=== PATIENT | female | born 1940 | race Caucasian/White ===

== ENCOUNTER → 2018-07-01 | Outpatient (CLI) | payer MEDICARE, OTHER, MEDICAID ==
[2018-07-01 16:48] LABS: BASO % 0.4 % (0.0-2.0); EOS # 0.2 (0.0-0.7); EOS % 3.8 % (0-4.0); GRAN # 3.6 (1.4-6.5); GRAN % 75.8 % (42.2-75.2); LYMPH # 0.5 (1.2-3.4); LYMPH % 11.3 % (20.0-51.0); MEAN CELL VOLUME 101 fl (80.0-100.0); MEAN CORPUSCULAR HGB CONC 33 g/dl (33.0-37.0); MEAN PLATELET VOLUME 10.2 fl (7.4-10.4); MONO # 0.4 (0.1-0.6); MONO % 7.6 % (1.7-9.3); PLATELET COUNT 274 K/mm3 (130-400); RED BLOOD COUNT 2.13 M/mm3 (4.10-5.30); REDCELL DISTRIBUTION WIDTH-CV 13.5 % (11.5-14.5)
[2018-07-01 16:54] LABS: HEMOGLOBIN 7.1 g/dl (12.5-16.0); MEAN CORPUSCULAR HEMOGLOBIN 33 pg (27.0-31.0)
[2018-07-01 16:55] LABS: HEMATOCRIT 21.4 % (37.0-47.0)
[2018-07-01 16:58] LABS: ALANINE AMINOTRANSFERASE 13 U/L (9-52); ALBUMIN 3.2 gm/dL (3.5-5.0); ALKALINE PHOSPHATASE 60 U/L (50-136); ANION GAP 6 mmol/L (7-16); AST,SGOT 41 U/L (15-37); BILIRUBIN,TOTAL 0.3 mg/dL (0.0-1.0); BLOOD UREA NITROGEN 37 mg/dL (7-17); CALCIUM 8.5 mg/dL (8.4-10.2); CARBON DIOXIDE 23 mmol/L (22-30); CHLORIDE 95 mmol/L (98-107); CREATININE, serum 1.01 (0.52-1.25); GLUCOSE 132 mg/dL (74-106); LIPASE 110 U/L (23-300); POTASSIUM 5.5 mmol/L (3.4-5.0); SODIUM 124 mmol/L (137-145); TOTAL PROTEIN 6.2 gm/dL (6.4-8.2)
[2018-07-01 17:27] LABS: TROPONIN-I < 0.012 ng/mL (0.000-0.035)
== END ==
LOC: ZCOL.LAB 14:52
PROVIDERS: Nurse Practitioner Family
DX: J18.9 Pneumonia, unspecified organism (principal); I50.9 Heart failure, unspecified; K86.1 Other chronic pancreatitis

== ENCOUNTER → 2018-07-02 | Outpatient (CLI) | payer MEDICARE, OTHER, MEDICAID ==
[2018-07-02 15:06] LABS: CALCIUM 8.3 mg/dL (8.4-10.2); CREATININE, serum 1.02 (0.52-1.25); POTASSIUM 5.1 mmol/L (3.4-5.0)
== END ==
LOC: ZCOL.LAB 14:42
PROVIDERS: Internal Medicine
DX: N17.9 Acute kidney failure, unspecified (principal)

== ENCOUNTER 2018-07-04 10:19 | Emergency (ER) | payer MEDICARE, OTHER, MEDICAID ==
[~2018-07-04] VITALS: Ht 160 cm; Wt 59.1 kg
[2018-07-04] VITALS (16 sets, daily range): BP systolic 123–153; BP diastolic 50–78; PULSE 64–75; TEMP 97.2–98
[2018-07-04 10:46] LABS: BASO # 0.1 (0.0-0.2); BASO % 0.9 % (0.0-2.0); EOS # 0.3 (0.0-0.7); GRAN # 3.6 (1.4-6.5); GRAN % 67.8 % (42.2-75.2); LYMPH # 0.9 (1.2-3.4); LYMPH % 17.1 % (20.0-51.0); MEAN CELL VOLUME 99 fl (80.0-100.0); MEAN CORPUSCULAR HGB CONC 34 g/dl (33.0-37.0); MEAN PLATELET VOLUME 8.6 fl (7.4-10.4); MONO # 0.4 (0.1-0.6); MONO % 7.1 % (1.7-9.3); PLATELET COUNT 348 K/mm3 (130-400); RED BLOOD COUNT 2.29 M/mm3 (4.10-5.30); REDCELL DISTRIBUTION WIDTH-CV 13.2 % (11.5-14.5)
[2018-07-04 10:49] LABS: HEMATOCRIT 22.7 % (37.0-47.0); HEMOGLOBIN 7.6 g/dl (12.5-16.0); MEAN CORPUSCULAR HEMOGLOBIN 33 pg (27.0-31.0)
[2018-07-04 10:54] LABS: INR 1.1 (0.8-3.0); PROTHROMBIN TIME 12.8 SECONDS (9.7-12.8)
[2018-07-04 10:55] LABS: ALANINE AMINOTRANSFERASE 8 U/L (9-52); ALBUMIN 3.4 gm/dL (3.5-5.0); ALKALINE PHOSPHATASE 57 U/L (50-136); ANION GAP 8 mmol/L (7-16); AST,SGOT 24 U/L (15-37); BILIRUBIN,TOTAL 0.3 mg/dL (0.0-1.0); BLOOD UREA NITROGEN 35 mg/dL (7-17); CALCIUM 8.8 mg/dL (8.4-10.2); CARBON DIOXIDE 25 mmol/L (22-30); CHLORIDE 93 mmol/L (98-107); CREATININE, serum 1.19 (0.52-1.25); GLUCOSE 103 mg/dL (74-106); LIPASE 132 U/L (23-300); POTASSIUM 5.2 mmol/L (3.4-5.0); SODIUM 126 mmol/L (137-145); TOTAL PROTEIN 6.6 gm/dL (6.4-8.2)
[2018-07-04] MEDS ORDERED: ATIVAN 0.50.5 MG/TAB PO (11:00)
[2018-07-04] MEDS ORDERED: ASPIRIN 81M81 MG/TA2 PO (11:00)
[2018-07-04] MEDS ORDERED: TYLENOL SU650 MG/SUP RC (11:00)
[2018-07-04] MEDS ORDERED: COREG 25MG25 MG/TAB PO (11:07)
[2018-07-04 11:08] LABS: TROPONIN-I < 0.012 ng/mL (0.000-0.035)
[2018-07-04] MEDS ORDERED: CATAPRES 0.1MG0.1 MG PO (11:08)
[2018-07-04] MEDS ORDERED: DULCOLAX STOOL100 MG PO (11:08)
[2018-07-04] MEDS ORDERED: EUCERIN1 CRE TOP (11:09)
[2018-07-04] MEDS ORDERED: MUCINEX 60600 MG/TA1 PO (11:09)
[2018-07-04] MEDS ORDERED: HYDRALAZINE HC100 MG PO (11:10)
[2018-07-04] MEDS ORDERED: IMODIUM 2MG CAPS2 MG PO (11:11)
[2018-07-04] MEDS ORDERED: GOOD SENSE ANTI-IT1% TP (11:11)
[2018-07-04] MEDS ORDERED: LASIX 40MG TABL40 MG PO (11:12)
[2018-07-04] MEDS ORDERED: SYNTHROID0.075 MG/T PO (11:12)
[2018-07-04] MEDS ORDERED: MIRALAX PA17 GM/Dose PO (11:13)
[2018-07-04] MEDS ORDERED: COZAAR100 MG PO (11:13)
[2018-07-04] MEDS ORDERED: MILK OF MA400 MG/52 (11:13)
[2018-07-04] MEDS ORDERED: MYLANTA 150 ML150 M1 (11:33)
[2018-07-04] MEDS ORDERED: ZOLOFT 100MG100 MG PO (11:34)
[2018-07-04] MEDS ORDERED: PROAIR HFA0.09 MG/AC IH (11:34)
[2018-07-04] MEDS ORDERED: PROTONIX 40MG T40 MG PO (11:34)
[2018-07-04] MEDS ORDERED: ADALAT CC90 MG PO (11:34)
[2018-07-04] MEDS ORDERED: ZOFRAN 4MG T4 MG/TAB PO (11:35)
[2018-07-04] MEDS ORDERED: TYLENOL 325MG325 MG PO (11:35)
[2018-07-04 12:45] LABS: COLLECTION METHOD CLEAN CATCH
[2018-07-04 12:58] LABS: AMORPHOUS CRYSTAL Present /uL; HYALINE CAST >12 /lpf; MUCOUS Present /lpf; PH 5 (5-8); SQUAMOUS EPITHELIAL 0-2 /hpf; URINE APPEARANCE Clear; URINE BACTERIA Many /hpf; URINE BILIRUBIN Negative (NEGATIVE); URINE BLOOD 1+ (NEGATIVE); URINE COLOR Yellow; URINE GLUCOSE Negative (NEGATIVE); URINE KETONE Negative (NEGATIVE); URINE LEUKOCYTE ESTERASE Trace (NEGATIVE); URINE NITRATE Negative (NEGATIVE); URINE PROTEIN(semi-quant) 1+ (NEGATIVE); URINE UROBILINOGEN Negative (NEGATIVE)
[2018-07-04] MEDS ORDERED: MACROBID 1100 MG/CAP PO (13:29)
== END 2018-07-04 16:49 | disposition home or self-care (01) ==
LOC: COL.ER 10:19
PROVIDERS: Emergency Medicine
DX: N39.0 Urinary tract infection, site not specified (principal); D64.9 Anemia, unspecified; J44.9 Chronic obstructive pulmonary disease, unspecified; Z79.82 Long term (current) use of aspirin
CPT/HCPCS: C9113; J1940; J2405; J7030; P9016

== ENCOUNTER → 2018-07-04 | Outpatient (CLI) | payer MEDICARE, OTHER, MEDICAID ==
[~2018-07-04] MED LIST: ADALAT CC90 MG PO; ASPIRIN 81M81 MG/TA2 PO; ATIVAN 0.50.5 MG/TAB PO; CATAPRES 0.1MG0.1 MG PO; COREG 25MG25 MG/TAB PO; COZAAR100 MG PO; DULCOLAX S10 MG/SUPP RC; DULCOLAX STOOL100 MG PO; EUCERIN1 CRE TOP; GOOD SENSE ANTI-IT1% TP; HYDRALAZINE HC100 MG PO; IMODIUM 2MG CAPS2 MG PO; LASIX 40MG TABL40 MG PO; MACROBID 1100 MG/CAP PO; MILK OF MA400 MG/52; MIRALAX PA17 GM/Dose PO; MUCINEX 60600 MG/TA1 PO; MYLANTA 150 ML150 M1; PROAIR HFA0.09 MG/AC IH; PROTONIX 40MG T40 MG PO; SYNTHROID0.075 MG/T PO; TYLENOL 325MG325 MG PO; TYLENOL SU650 MG/SUP RC; ZOFRAN 4MG T4 MG/TAB PO; ZOLOFT 100MG100 MG PO
[2018-07-04 09:06] LABS: BASO % 0.6 % (0.0-2.0); EOS # 0.3 (0.0-0.7); EOS % 5.1 % (0-4.0); GRAN # 3.4 (1.4-6.5); GRAN % 69.7 % (42.2-75.2); LYMPH # 0.7 (1.2-3.4); LYMPH % 14.6 % (20.0-51.0); MEAN CELL VOLUME 100 fl (80.0-100.0); MEAN CORPUSCULAR HGB CONC 33 g/dl (33.0-37.0); MEAN PLATELET VOLUME 8.7 fl (7.4-10.4); MONO # 0.5 (0.1-0.6); MONO % 9.2 % (1.7-9.3); PLATELET COUNT 305 K/mm3 (130-400); RED BLOOD COUNT 1.83 M/mm3 (4.10-5.30); REDCELL DISTRIBUTION WIDTH-CV 13.3 % (11.5-14.5)
[2018-07-04 09:09] LABS: CALCIUM 8.2 mg/dL (8.4-10.2); CREATININE, serum 1.11 (0.52-1.25); POTASSIUM 5.2 mmol/L (3.4-5.0)
[2018-07-04 09:11] LABS: HEMATOCRIT 18.3 % (37.0-47.0); MEAN CORPUSCULAR HEMOGLOBIN 33 pg (27.0-31.0)
[2018-07-04 09:20] LABS: HEMOGLOBIN 6.1 g/dl (12.5-16.0)
== END ==
LOC: COL.LAB 08:46 → ZCOL.LAB 08:46
PROVIDERS: Internal Medicine
DX: J44.9 Chronic obstructive pulmonary disease, unspecified (principal); N17.9 Acute kidney failure, unspecified

== ENCOUNTER → 2018-07-05 | Outpatient (CLI) | payer MEDICARE, OTHER, MEDICAID ==
[2018-07-05 09:28] LABS: BASO % 0.4 % (0.0-2.0); EOS # 0.3 (0.0-0.7); EOS % 4.3 % (0-4.0); GRAN # 5.4 (1.4-6.5); GRAN % 77.8 % (42.2-75.2); LYMPH # 0.8 (1.2-3.4); LYMPH % 11.9 % (20.0-51.0); MEAN CELL VOLUME 98 fl (80.0-100.0); MEAN CORPUSCULAR HGB CONC 34 g/dl (33.0-37.0); MONO # 0.3 (0.1-0.6); MONO % 4.6 % (1.7-9.3); PLATELET COUNT 310 K/mm3 (130-400); RED BLOOD COUNT 2.19 M/mm3 (4.10-5.30); REDCELL DISTRIBUTION WIDTH-CV 13.8 % (11.5-14.5)
[2018-07-05 09:32] LABS: HEMATOCRIT 21.5 % (37.0-47.0); HEMOGLOBIN 7.2 g/dl (12.5-16.0); MEAN CORPUSCULAR HEMOGLOBIN 33 pg (27.0-31.0)
[2018-07-05 13:58] LABS: CALCIUM 8.8 mg/dL (8.4-10.2); CREATININE, serum 1.04 (0.52-1.25); POTASSIUM 4.9 mmol/L (3.4-5.0)
== END ==
LOC: COL.LAB 09:18 → ZCOL.LAB 09:18
PROVIDERS: Internal Medicine
DX: N17.9 Acute kidney failure, unspecified (principal); J44.9 Chronic obstructive pulmonary disease, unspecified

== ENCOUNTER 2018-07-06 14:15 | Day surgery (SDC) | payer MEDICARE, OTHER, MEDICAID ==
[~2018-07-06] VITALS: Ht 160 cm; Wt 58.7 kg
[~2018-07-06 14:15] MED LIST changes: -DULCOLAX S10 MG/SUPP RC
[2018-07-06 15:06] VITALS: BP 129/55; PULSE 63; TEMP 97.6
[2018-07-06] MEDS ORDERED: DULCOLAX S10 MG/SUPP RC (15:10)
--- NOTE | 2018-07-06 15:22 | NUR ---
UNABLE TO START IV AFTER 2 ATTEMPTS IV SERVICES CALLED.
[2018-07-06 16:40] VITALS: BP 115/58; PULSE 67; TEMP 97.5
--- NOTE | 2018-07-06 16:40 | NUR ---
TO BAY4 PER CART FROM ENDOSCOPY. AMBULATED TO RECLINER WITH 2 ASSIST AND TOLERATED WELL.
[2018-07-06 16:55] VITALS: BP 119/55; PULSE 68
[2018-07-06 17:10] VITALS: BP 119/55; PULSE 68
--- NOTE | 2018-07-06 17:10 | NUR ---
SON BACK IN RM TO SIT WITH PATIENT
[2018-07-06 17:25] VITALS: BP 133/67; PULSE 65
--- NOTE | 2018-07-06 17:25 | NUR ---
DISCONTINUED IV AND INT- CATHETER INTACT COVERED WITH COTTON BALL AND COBAN
--- NOTE | 2018-07-06 17:35 | NUR ---
ASSISTED PATIENT WITH [facility] AND GETTING DRESSED AND BACK TO FROM [facility]
--- NOTE | 2018-07-06 17:45 | NUR ---
DISCHARGED PER WC BY NURSING STAFF TO PRIVATE CAR IN CARE OF SON TO BE TAKEN BACK TO [facility]
== END 2018-07-06 18:24 | disposition home or self-care (01) ==
LOC: SDCO 14:15
DX: D50.0 Iron deficiency anemia secondary to blood loss (chronic) (principal); K55.9 Vascular disorder of intestine, unspecified; K92.1 Melena; K21.9 Gastro-esophageal reflux disease without esophagitis; I50.9 Heart failure, unspecified; D63.8 Anemia in other chronic diseases classified elsewhere; I13.0 Hypertensive heart and chronic kidney disease with heart failure and stage 1 through stage 4 chronic kidney disease, or unspecified chronic kidney disease; N18.9 Chronic kidney disease, unspecified; Z79.899 Other long term (current) drug therapy; Z87.891 Personal history of nicotine dependence; F41.9 Anxiety disorder, unspecified
CPT/HCPCS: OP; J2704; J7030

== ENCOUNTER → 2018-07-06 | Outpatient (CLI) | payer MEDICARE, OTHER, MEDICAID ==
[2018-07-06 13:07] LABS: BASO % 0.6 % (0.0-2.0); EOS # 0.2 (0.0-0.7); EOS % 3.7 % (0-4.0); GRAN # 4.1 (1.4-6.5); GRAN % 75.5 % (42.2-75.2); LYMPH # 0.7 (1.2-3.4); LYMPH % 12.6 % (20.0-51.0); MEAN CELL VOLUME 100 fl (80.0-100.0); MEAN CORPUSCULAR HGB CONC 33 g/dl (33.0-37.0); MEAN PLATELET VOLUME 8.8 fl (7.4-10.4); MONO # 0.4 (0.1-0.6); MONO % 6.7 % (1.7-9.3); PLATELET COUNT 322 K/mm3 (130-400); RED BLOOD COUNT 2.34 M/mm3 (4.10-5.30); REDCELL DISTRIBUTION WIDTH-CV 13.6 % (11.5-14.5)
[2018-07-06 13:15] LABS: CALCIUM 8.7 mg/dL (8.4-10.2); CREATININE, serum 1.46 (0.52-1.25); HEMATOCRIT 23.3 % (37.0-47.0); HEMOGLOBIN 7.7 g/dl (12.5-16.0); MEAN CORPUSCULAR HEMOGLOBIN 33 pg (27.0-31.0); POTASSIUM 4.2 mmol/L (3.4-5.0)
== END ==
LOC: ZCOL.LAB 11:20
PROVIDERS: Internal Medicine
DX: Z01.89 Encounter for other specified special examinations (principal)

== ENCOUNTER → 2018-07-18 | Outpatient (CLI) | payer MEDICARE, OTHER, MEDICAID ==
[~2018-07-18] MED LIST changes: +DULCOLAX S10 MG/SUPP RC
[2018-07-18 19:52] LABS: BASO # 0.1 (0.0-0.2); BASO % 0.7 % (0.0-2.0); EOS # 0.1 (0.0-0.7); EOS % 1.6 % (0-4.0); GRAN # 5.3 (1.4-6.5); GRAN % 76.9 % (42.2-75.2); LYMPH # 0.9 (1.2-3.4); LYMPH % 12.3 % (20.0-51.0); MEAN CELL VOLUME 101 fl (80.0-100.0); MEAN CORPUSCULAR HGB CONC 32 g/dl (33.0-37.0); MEAN PLATELET VOLUME 9.7 fl (7.4-10.4); MONO # 0.6 (0.1-0.6); MONO % 7.9 % (1.7-9.3); PLATELET COUNT 315 K/mm3 (130-400); REDCELL DISTRIBUTION WIDTH-CV 13.1 % (11.5-14.5)
[2018-07-18 19:53] LABS: HEMATOCRIT 25.2 % (37.0-47.0); HEMOGLOBIN 8.1 g/dl (12.5-16.0); MEAN CORPUSCULAR HEMOGLOBIN 32 pg (27.0-31.0)
== END ==
LOC: ZCOL.LAB 16:31
PROVIDERS: Nurse Practitioner Family
DX: N18.9 Chronic kidney disease, unspecified (principal); D63.1 Anemia in chronic kidney disease

== ENCOUNTER → 2019-01-05 | Outpatient (CLI) | payer MEDICARE, OTHER, MEDICAID | LOC: COL.RAD 01-04 11:15 | DX: I70.1 Atherosclerosis of renal artery (principal); N20.0 Calculus of kidney ==

== ENCOUNTER 2019-01-08 09:09 | Inpatient (IN) | payer MEDICARE, OTHER, MEDICAID ==
[~2019-01-08] VITALS: Ht 157.5 cm; Wt 63.8 kg
--- NOTE | 2019-01-08 12:00 | NUR ---
Pt arrived to room 354 at this time. She is a pleasant lady, A/O x4. Her breathing is even and unlabored on RA. Pt denies SOB. No pain at this time. Pt reports decrease in appetite, denies wanting to eat at this time. Diet discussed with patient. +BS. Pt up to urinate in the bathroom, hematuria present. She denies any dysuria or frequency. IV started to RFA. POC discussed with patient and her daughter. No needs at this time. Call light within reach.
[2019-01-08 12:51] VITALS: BP 157/68; PULSE 72; TEMP 97.7
[2019-01-08 13:10] LABS: HEMOGLOBIN 11.2 g/dl (12.5-16.0); MEAN CELL VOLUME 95 fl (80.0-100.0); MEAN CORPUSCULAR HEMOGLOBIN 31 pg (27.0-31.0); MEAN CORPUSCULAR HGB CONC 32 g/dl (33.0-37.0); MEAN PLATELET VOLUME 9.2 fl (7.4-10.4); PLATELET COUNT 220 K/mm3 (130-400); RED BLOOD COUNT 3.66 M/mm3 (4.10-5.30); REDCELL DISTRIBUTION WIDTH-CV 16.1 % (11.5-14.5)
[2019-01-08 13:21] LABS: HEMATOCRIT 34.9 % (37.0-47.0)
[2019-01-08 13:23] LABS: ALBUMIN 3.7 gm/dL (3.5-5.0); CALCIUM 8.8 mg/dL (8.4-10.2); POTASSIUM 4.6 mmol/L (3.4-5.0); URIC ACID 6.3 mg/dL (2.5-6.2)
[2019-01-08 13:25] LABS: CREATININE, serum 3.94 (0.52-1.25)
[2019-01-08 13:32] LABS: PROTHROMBIN TIME 11.8 SECONDS (9.7-12.8)
[2019-01-08 13:54] LABS: PLATELET ESTIMATE NORMAL (NORMAL)
[2019-01-08 13:55] LABS: ANISOCYTOSIS 1+
[2019-01-08 14:05] LABS: BAND 6 % (0-10); EOSINOPHIL 3 % (0-4); LYMPHOCYTE 17 % (20.0-51.0); NEUTROPHILS 71 % (42.0-75.2)
[2019-01-08 14:36] LABS: COLLECTION METHOD CLEAN CATCH
[2019-01-08 15:04] LABS: CREATININE, serum 3.86 (0.52-1.25); FRACTIONAL EXCRETION OF NA+ 0.9 %
[2019-01-08 15:29] LABS: PH 6 (5-8); SQUAMOUS EPITHELIAL 0-2 /hpf; URINE APPEARANCE Hazy; URINE BACTERIA Occasional /hpf; URINE BILIRUBIN Negative (NEGATIVE); URINE BLOOD 3+ (NEGATIVE); URINE COLOR Yellow; URINE GLUCOSE Negative (NEGATIVE); URINE KETONE Negative (NEGATIVE); URINE LEUKOCYTE ESTERASE Negative (NEGATIVE); URINE NITRATE Negative (NEGATIVE); URINE PROTEIN(semi-quant) 3+ (NEGATIVE); URINE RBC >50 /hpf; URINE UROBILINOGEN Negative (NEGATIVE)
[2019-01-08 15:44] VITALS: BP 151/60; PULSE 68; TEMP 97.9
[2019-01-08 16:07] LABS: URINE PROTEIN:CREAT RATIO 9.08 (0.00-0.14)
--- NOTE | 2019-01-08 19:15 | NUR ---
Bedside report received. Assuming care at this time.
--- NOTE | 2019-01-08 19:45 | NUR ---
24 hr urine collection started at this time.
--- NOTE | 2019-01-08 20:00 | NUR ---
Patient awake and watching tv. Complaints of back pain rated 5/10 and aching. Assessment complete. Lungs are clear bilaterally with diminished bases. HR and rhythm are regular with normal S1 and S2 heard. Bowel sounds active x4. Pulses palpable in all extremities. Patient requests for her heating llanos bag to be warmed up, provided. No further needs at this time. Will continue to monitor. Call light within reach.
[2019-01-08 20:20] VITALS: BP 180/76; PULSE 70; TEMP 97.8
[2019-01-09] VITALS (7 sets, daily range): BP systolic 141–184; BP diastolic 50–76; PULSE 72–79; TEMP 97.4–98.5
--- NOTE | 2019-01-09 07:30 | NUR ---
Received report. Patient had just been up to restroom with staff assist. Off going nurse reported that patient preferred to be left alone as she stated she was a late sleeper. Patient is resting with door closed.
--- NOTE | 2019-01-09 14:43 | NUR ---
Plan: To return to [facility] at [facility]. Sw met with patient in room. Patient reports that she resides at [facility] and her pcp is Dr. Polo. Patient reports that [facility] obtains RX on her behalf. Pt reports that her DTR Ms. Lawton and Son Anita Li are both in contact with her on her care but does not have DPOA assigned that she knows of. Patient reports the use of walker and wheelchair. Patient denies anyu care concerns. Patient denies having any additonal needs. Action. Will continue to follow care No additonal needs identifed.
--- NOTE | 2019-01-09 18:03 | NUR ---
Patient is resting flat in bed. Did offer assistance in ordering supper and she declined stating she ordered an Ensure shake and stated she didn't want any food. I did inform patient if she should change her mind there is some food available in the nutruition room, she stated, "ok." Spoke with Dr. Hunter regarding renal scan and he would like it to be completed tomorrow. Did inform radiology and they report they would like to begin the test at 0800 tomorrow and patient is not to have any solid food prior to procedure.
--- NOTE | 2019-01-09 19:45 | NUR ---
Initial assessment done- states having aches all over- will give tylenol at this time, no edema, 24 hr urine completed, family at bedside visiting with patient. VSS. o2 at 2L/nc.
[2019-01-09 22:13] LABS: URINE TOTAL VOLUME 1750 mL
[2019-01-09 22:25] LABS: CREATININE, serum 3.94 (0.52-1.25)
[2019-01-09 22:30] LABS: URINE CREATININE CLEARANCE 13.5 mL/min (88-128)
[2019-01-10 03:48] VITALS: BP 138/52; PULSE 68; TEMP 98.7
--- NOTE | 2019-01-10 05:47 | NUR ---
Quiet night- no requests, VSS Up to bathroom with standy assist/walker,
[2019-01-10 07:40] VITALS: BP 154/57; PULSE 76; TEMP 98.4
--- NOTE | 2019-01-10 11:11 | NUR ---
Patient went down for renal scan at 0830 this morning. Returned at 1035. Dr. Hunter is in to see patient. Daughter is at bedside. Call light and personal items are within reach.
[2019-01-10 11:26] LABS: ALBUMIN 3.4 gm/dL (3.5-5.0); CALCIUM 8.7 mg/dL (8.4-10.2); PHOSPHOROUS 7.7 mg/dL (2.5-4.5)
[2019-01-10 11:32] LABS: CREATININE, serum 4.35 (0.52-1.25)
[2019-01-10 12:13] VITALS: BP 160/64; PULSE 72; TEMP 98.6
--- NOTE | 2019-01-10 15:10 | NUR ---
Plan: To Return home to [facility]. Patient EMR's are [phone] and [phone]. DPOA is Anaid and patients son Kuldeep Lawton. Patient resides in [facility]. Assess: SW met with patient and daughters were present. Patient gave permission to discuss information in front of daughters. Patient reported that she has used oxygen in the past, she was currently recieving oxygen, and she uses a walker at home. Patient reported that her PCP is Dr Hendricks, and she did not have any upcoming appointments. Patient reported that she gets her medications from the care home with no complications. Plan: No additional concerns identified. Patient was educated about community resources and supports. Faxed reports to anabell at [facility](Juliane fax # [phone])
[2019-01-10 15:47] VITALS: BP 125/52; PULSE 68; TEMP 98.4
--- NOTE | 2019-01-10 18:14 | NUR ---
Patient has been up to the restroom and back to bed. Has had daughter to visit most of the day. Did eat solid food this evening. Denies pain, just states she has been cold. Call light and personal items are within reach.
[2019-01-10 19:32] VITALS: BP 122/45; PULSE 72; TEMP 99
[2019-01-10 23:08] VITALS: BP 124/50; PULSE 70; TEMP 98.9
[2019-01-11 04:06] VITALS: BP 127/46; PULSE 62; TEMP 98.5
[2019-01-11 07:09] VITALS: BP 140/52; PULSE 64; TEMP 98
--- NOTE | 2019-01-11 07:59 | NUR ---
Patient is in bed, ultrasound is present for vein mapping. Has remained NPO for renal biopsy today. Respirations are even and nonlabored. Call light and personal items are within reach.
[2019-01-11 08:00] LABS: MEAN CELL VOLUME 95 fl (80.0-100.0); MEAN CORPUSCULAR HGB CONC 32 g/dl (33.0-37.0); PLATELET COUNT 174 K/mm3 (130-400); RED BLOOD COUNT 3.13 M/mm3 (4.10-5.30); REDCELL DISTRIBUTION WIDTH-CV 16.1 % (11.5-14.5)
[2019-01-11 08:07] LABS: INR 1.1 (0.8-3.0); PROTHROMBIN TIME 12.6 SECONDS (9.7-12.8)
[2019-01-11 08:10] LABS: CALCIUM 8.1 mg/dL (8.4-10.2); CREATININE, serum 4.58 (0.52-1.25); PHOSPHOROUS 8.1 mg/dL (2.5-4.5); POTASSIUM 3.7 mmol/L (3.4-5.0)
[2019-01-11 08:12] LABS: HEMATOCRIT 29.7 % (37.0-47.0); HEMOGLOBIN 9.4 g/dl (12.5-16.0); MEAN CORPUSCULAR HEMOGLOBIN 30 pg (27.0-31.0)
--- NOTE | 2019-01-11 08:40 | NUR ---
Pt had an uneventful night. O2 on per NC at 2.5L. Woke up this morning with dry throat. States she feels like her throat is swollen. Explained to her that we can put a humidifier on her O2 and that was done. HOB elevated 35-40. No other c/o. Call light in reach. Refuses her SCD's this shift.
--- NOTE | 2019-01-11 09:00 | NUR ---
Patient is in bed, having sonogram of arm for vein mapping. Is unable to have renal biopsy today, has been scheduled for tomorrow. Is observed to have some swelling to her right cheek. Nurse for Dr. Hunter is aware. Call light and personal items are within reach.
[2019-01-11 10:00] LABS: BAND 5 % (0-10); EOSINOPHIL 7 % (0-4); LYMPHOCYTE 14 % (20.0-51.0); NEUTROPHILS 68 % (42.0-75.2); PLATELET ESTIMATE NORMAL (NORMAL)
[2019-01-11 11:42] VITALS: BP 127/46; PULSE 65; TEMP 98
--- NOTE | 2019-01-11 12:36 | NUR ---
Initial visit; Patient thanked Podiatric Surgeon for looking in on her and offering prayer and God's blessings. Podiatric Surgeon will follow-up.
--- NOTE | 2019-01-11 13:27 | NUR ---
ARTI contacted and faxed updates to Crystal at [facility]. SW to continue to follow.
[2019-01-11 14:43] LABS: ANA SCREEN with REFLEX Negative (Negative)
--- NOTE | 2019-01-11 15:54 | NUR ---
The patient completed a Living Will. The patient's son requested a notary. SW notified the notaryCaterina. The document was notarized. ARTI placed a copy of the Living Will in the patient's chart.
[2019-01-11 17:05] VITALS: BP 144/54; PULSE 76; TEMP 98.8
--- NOTE | 2019-01-11 19:10 | NUR ---
Patient was reported to have oral antibiotic ordered and was mentioned and progress note. Called Dr. Hunter and confirmed order, was placed for pharmacy review. Call light and personal items are within reach.
[2019-01-11 19:20] VITALS: BP 155/59; PULSE 73; TEMP 98
[2019-01-11 23:37] VITALS: BP 141/53; PULSE 71; TEMP 97.9
[2019-01-12] VITALS (20 sets, daily range): BP systolic 121–160; BP diastolic 50–76; PULSE 58–70; TEMP 97.9–98
--- NOTE | 2019-01-12 02:17 | NUR ---
Pt requested Tylenol 650mg at HS. Face still appears a little edematous. O2 on at HS at 2L/nc. C/o lips being very dry. Moisture applied to lips. Pt made NPO at midnight. Quiet evening.
--- NOTE | 2019-01-12 03:45 | NUR ---
Pt up to BR with SBA. Steady gait. Denies any needs. Back to bed. Positioned on left side. Call light within reach.
[2019-01-12 07:17] LABS: ALBUMIN 3.1 gm/dL (3.5-5.0); CALCIUM 8.2 mg/dL (8.4-10.2); PHOSPHOROUS 8.6 mg/dL (2.5-4.5); POTASSIUM 3.4 mmol/L (3.4-5.0)
[2019-01-12 07:18] LABS: CREATININE, serum 4.71 (0.52-1.25)
--- NOTE | 2019-01-12 08:00 | NUR ---
Patient in bed resting. Alert and oriented x 3. Shift assessment complete. Patient denies pain at this time. x1 assist to restroom with walker. Denies further needs at this time. Patient NPO for kidney biopsy this AM.
--- NOTE | 2019-01-12 09:00 | NUR ---
Patient down for kidney biopsy
--- NOTE | 2019-01-12 09:05 | NUR ---
pt to room per bed. Pt positioned in prone position on ct table. Monitors applied. O2 continues at 2l/nc.
--- NOTE | 2019-01-12 09:35 | NUR ---
Specimens obtained and transported to Dr Guevara to view via microscope. Additional specimens obtained and Dr Guevara stated he had enough glomeruli
--- NOTE | 2019-01-12 10:00 | NUR ---
Patient up from biopsy. Drowsy but arouses easily to voice. Educated patient on bedrest after procedure. Postop VSS. Denies further needs at this time.
[2019-01-12 10:59] LABS: EOS # 0.2 (0.0-0.7); EOS % 4.5 % (0-4.0); GRAN # 2.7 (1.4-6.5); GRAN % 65.5 % (42.2-75.2); LYMPH # 0.8 (1.2-3.4); LYMPH % 19.6 % (20.0-51.0); MEAN CELL VOLUME 96 fl (80.0-100.0); MEAN CORPUSCULAR HGB CONC 32 g/dl (33.0-37.0); MEAN PLATELET VOLUME 10.4 fl (7.4-10.4); MONO # 0.4 (0.1-0.6); MONO % 8.9 % (1.7-9.3); PLATELET COUNT 205 K/mm3 (130-400); RETIC # 0.09 M/mm3 (0.02-0.16); RETIC % 2.8 % (0.5-3.52)
[2019-01-12 11:06] LABS: HEMATOCRIT 29.6 % (37.0-47.0); HEMOGLOBIN 9.5 g/dl (12.5-16.0); MEAN CORPUSCULAR HEMOGLOBIN 31 pg (27.0-31.0)
--- NOTE | 2019-01-12 12:46 | NUR ---
Dr. Teixeira in to see patient.
[2019-01-12 13:42] LABS: ARTERIAL BLD GAS O2 SATURATION 91.8 % (92-100); ARTERIAL BLD GAS TCO2 CT 22.2; ARTERIAL BLOOD GAS BASE EXCESS -4.1 (-2-2); ARTERIAL BLOOD GAS PCO2 38.3 mmHg (35-45); ARTERIAL BLOOD GAS pH 7.36 (7.35-7.45)
--- NOTE | 2019-01-12 15:27 | NUR ---
ARTI contacted and faxed updates to Crystal at [facility]. ARTI requested from RN, Nithya, for PT/OT to be ordered. ARTI to continue to follow.
--- NOTE | 2019-01-12 16:52 | NUR ---
Patient sitting up in bed. Ordered supper, Denies further needs at this time.
--- NOTE | 2019-01-12 18:37 | NUR ---
Patient has done well throughout the day. Biopsy site with bandaid remains CDI. Has requested tylenol for neck pain. Given per orders. Denies further needs at this time. Will report off to night time nanny.
--- NOTE | 2019-01-12 21:00 | NUR ---
Shift assessment complete. Patient c/o right hip pain. Will give tylenol when due. Patient agreeable to plan. Denies further needs at this time. Will continue to monitor.
[2019-01-13] VITALS (8 sets, daily range): BP systolic 121–141; BP diastolic 40–56; PULSE 59–71; TEMP 97.2–98.3
--- NOTE | 2019-01-13 04:16 | NUR ---
Patient in bed, resting. Denies pain. Denies further needs at this time. Will continue to monitor.
[2019-01-13 06:57] LABS: BASO % 0.7 % (0.0-2.0); EOS # 0.2 (0.0-0.7); EOS % 5.6 % (0-4.0); GRAN # 2.6 (1.4-6.5); GRAN % 64.1 % (42.2-75.2); LYMPH # 0.8 (1.2-3.4); LYMPH % 18.9 % (20.0-51.0); MEAN CELL VOLUME 94 fl (80.0-100.0); MEAN CORPUSCULAR HGB CONC 32 g/dl (33.0-37.0); MEAN PLATELET VOLUME 9.4 fl (7.4-10.4); MONO # 0.4 (0.1-0.6); MONO % 10.2 % (1.7-9.3); PLATELET COUNT 201 K/mm3 (130-400); RED BLOOD COUNT 2.85 M/mm3 (4.10-5.30); REDCELL DISTRIBUTION WIDTH-CV 15.5 % (11.5-14.5)
[2019-01-13 07:09] LABS: HEMATOCRIT 26.8 % (37.0-47.0); HEMOGLOBIN 8.6 g/dl (12.5-16.0); MEAN CORPUSCULAR HEMOGLOBIN 30 pg (27.0-31.0)
[2019-01-13 07:10] LABS: ALBUMIN 2.9 gm/dL (3.5-5.0); CALCIUM 7.8 mg/dL (8.4-10.2); POTASSIUM 3.7 mmol/L (3.4-5.0)
[2019-01-13 07:15] LABS: CREATININE, serum 5.09 (0.52-1.25); PHOSPHOROUS 9.8 mg/dL (2.5-4.5)
--- NOTE | 2019-01-13 08:40 | NUR ---
Assessment complete. Pt resting in bed, A&O x 3. Breath sounds CTAB. BS active x 4. Pt reports aching to right hip/flank 4 out of 10 on pain scale. Bandaid in place to right hip, CDI. Saline lock IV to right forearm without s/s of complications. No further needs reported. Call light in reach.
--- NOTE | 2019-01-13 11:00 | NUR ---
Assessment entered by student nurse reviewed and agreed by this nurse.
--- NOTE | 2019-01-13 14:01 | NUR ---
ARTI contacted and faxed updates to Crystal at [facility]. SW to continue to follow.
--- NOTE | 2019-01-13 16:10 | NUR ---
Pt to CT for testing via WC.
--- NOTE | 2019-01-13 20:00 | NUR ---
Shift assessment complete. Patient ambulated to BR with walker and assist x1. Stated, mild pain in right hip. Prn tylenol given per request. Urine noted to be slightly red-tinged. Will notify Dr. Hunter in a.m. Denies further needs at this time. Will continue to monitor.
[2019-01-14] VITALS (24 sets, daily range): BP systolic 145–178; BP diastolic 58–83; PULSE 65–71; TEMP 97.4–97.9; O2SAT 35–100
--- NOTE | 2019-01-14 08:00 | NUR ---
Patient is awake and alert in bed. She signed consent for dialysis catheter. She was up to restroom, gait steady. Does state that her throat is a little sore. Call ligth and personal items are within reach.
--- NOTE | 2019-01-14 11:00 | NUR ---
Patient left floor for dialysis catheter placement.
--- NOTE | 2019-01-14 12:15 | NUR ---
ALL MEDICATIONS GIVEN WITH VORB FROM MD. SEE MERGE FOR ALL MEDICATION ADMIN TIMES. SEE MERGE FOR ALL RASS ASSESSMENTS DURING AND POST PROCEDURE.
--- NOTE | 2019-01-14 13:47 | NUR ---
Emiliana ShresthaProduce Buyer attempts to contact Dr. Hunter.
--- NOTE | 2019-01-14 13:48 | NUR ---
Emiliana calls Nely nephrology RN and leaves message in attempt to contact Dr Hunter.
[2019-01-14 13:59] LABS: HEMOGLOBIN 10.2 g/dl (12.5-16.0); MEAN CELL VOLUME 94 fl (80.0-100.0); MEAN CORPUSCULAR HEMOGLOBIN 31 pg (27.0-31.0); MEAN CORPUSCULAR HGB CONC 32 g/dl (33.0-37.0); MEAN PLATELET VOLUME 9.3 fl (7.4-10.4); PLATELET COUNT 191 K/mm3 (130-400); RED BLOOD COUNT 3.34 M/mm3 (4.10-5.30); REDCELL DISTRIBUTION WIDTH-CV 15.5 % (11.5-14.5)
[2019-01-14 13:59] LABS: ARTERIAL BLD GAS O2 SATURATION 99.6 % (92-100); ARTERIAL BLD GAS TCO2 CT 13.7; ARTERIAL BLOOD GAS BASE EXCESS -12.8 (-2-2); ARTERIAL BLOOD GAS HCO3 12.8 meq/L (22-26); ARTERIAL BLOOD GAS PCO2 28.7 mmHg (35-45); ARTERIAL BLOOD GAS pH 7.27 (7.35-7.45)
[2019-01-14 14:11] LABS: HEMATOCRIT 31.5 % (37.0-47.0)
--- NOTE | 2019-01-14 14:23 | NUR ---
Patient arrives to ICU 5 via bed and is placed on ICU monitors. She is alert and oriented to person and place and situation. Patient expresses pain to he chest and back. She is post code with ROSC achieved before transfer into unit. Pupils equal and reactive to light and accomodation. Lung sounds clear and equal to upper lobes, diminished to bilateral bases. Prior chest x-ray complete before transfer and reviewed by MD Ghada. Heart tones S1S2 appreciated with correlating rhythm on monitor. Bowel sounds not appreciated RFA 22g peripheral IV infiltrated and leaking. Site removed and attempt made x2 to replace line without success. HD catheter to right chest with dressing CDI. [place] catheter placed with scant urine output noted and urine soaked brief removed. Care assumed.
[2019-01-14 14:24] LABS: CREATININE, serum 5.09 (0.52-1.25); POTASSIUM 5.8 mmol/L (3.4-5.0)
[2019-01-14 14:25] LABS: CALCIUM 17.7 mg/dL (8.4-10.2); PHOSPHOROUS 9.4 mg/dL (2.5-4.5)
--- NOTE | 2019-01-14 14:25 | NUR ---
SonKuldeep is at bedside and questions are invited asked and answered. Support provided.
--- NOTE | 2019-01-14 14:28 | NUR ---
Patient with noted bradycardia on monitor at 1426. Patient with continued hypotension since arrival to unit. Placed in trendelenburg. Patient rapidly looses conciousness and pulse is not palpable at 1428. Compressions started. Son at bedside stops nursing staff approximately 10 compressions in and states this is not what his mother would want and to make her a DNR. Support is provided at bedside. Continued monitoring provided. Corporate Relations Director and social worker palliative care contacted.
--- NOTE | 2019-01-14 14:34 | NUR ---
This RN calls [facility] in attempt to contact Dr. Hunter and leaves message with SANTANA Ramirez.
--- NOTE | 2019-01-14 14:43 | NUR ---
Dr. Hunter calls back to ICU main line and is provided update by this RN. indicates that 2 RN's may pronounce patient .
[2019-01-14 14:53] LABS: BAND 16 % (0-10); BURR CELLS 2+; LYMPHOCYTE 34 % (20.0-51.0); NEUTROPHILS 49 % (42.0-75.2); NUCLEATED RED BLOOD CELL 1 (0-6); PLATELET ESTIMATE NORMAL (NORMAL)
[2019-01-14 14:54] LABS: OVALOCYTES 1+
--- NOTE | 2019-01-14 15:00 | NUR ---
[facility] [place] referral # [id number].
--- NOTE | 2019-01-14 15:21 | NUR ---
Initial visit; Patient , Melter Loader ministered to her son offering prayer. When [id number] and grand-daughter arrived Melter Loader prayed The Lord's Prayer and The Psalm along with offering comfort and assurance that staff is available to them to answer questions and help them with their loss. Melter Loader remains available to family.
[2019-01-14 15:49] LABS: RHEUMATOID FACTOR-SCREEN <15 IU/mL (0-29)
--- NOTE | 2019-01-14 16:20 | NUR ---
JAZMIN maldonado responded to a code blue at the dialysis center. The time of was called at 1447 by Janeth Garcia RN and Destiny Barlow RN. The family chose [facility] at [address] JAZMIN maldonado contacted Michelle at the home. Michelle requested a facesheet and DPOA information be faxed. JAZMIN maldonado faxed the information. JAZMIN maldonado collaborated the above information with the patient's nurse.
--- NOTE | 2019-01-14 17:17 | NUR ---
Patient released to home.
[2019-01-14 18:12] LABS: COMPLEMENT-C3 99 mg/dL (79-152); COMPLEMENT-C4 13 mg/dL (18-55)
[2019-01-15 13:47] LABS: HEPATITIS B CORE AB,TOTAL Negative (()); HEPATITIS B SURFACE ANTIBODY <2.0 (()); HEPATITIS B SURFACE ANTIGEN Negative (Negative)
[2019-01-15 13:49] LABS: HEPATITIS C VIRUS ANTIBODY Negative (Negative)
[2019-01-15 21:33] LABS: C-ANCA 42 U/mL (0-99)
[2019-01-21 08:34] LABS: CRYOFIBRINOGEN XXX; HEPATITIS C RNA-PCR QT-LABCORP XXX
== END 2019-01-14 17:17 | disposition expired | DRG 699 ==
LOC: MEDICAL 09:09 → ICU 01-14 14:06
PROVIDERS: Internal Medicine Critical Care Medicine; ADMIT Internal Medicine Nephrology
PROC: 5A1D70Z Performance of Urinary Filtration, Intermittent, Less than 6 Hours Per Day (ICD-10-PCS; principal; 2019-01-08)
PROC: 0JH63XZ Insertion of Tunneled Vascular Access Device into Chest Subcutaneous Tissue and Fascia, Percutaneous Approach (ICD-10-PCS; 2019-01-14)
PROC: 05HM33Z Insertion of Infusion Device into Right Internal Jugular Vein, Percutaneous Approach (ICD-10-PCS; 2019-01-14)
DX: N04.9 Nephrotic syndrome with unspecified morphologic changes (principal); I13.0 Hypertensive heart and chronic kidney disease with heart failure and stage 1 through stage 4 chronic kidney disease, or unspecified chronic kidney disease; I50.30 Unspecified diastolic (congestive) heart failure; E87.1 Hypo-osmolality and hyponatremia; I70.1 Atherosclerosis of renal artery; N17.9 Acute kidney failure, unspecified; R59.0 Localized enlarged lymph nodes; N18.3 Chronic kidney disease, stage 3 (moderate); N39.3 Stress incontinence (female) (male); K21.9 Gastro-esophageal reflux disease without esophagitis; E03.9 Hypothyroidism, unspecified; F32.9 Major depressive disorder, single episode, unspecified; F41.9 Anxiety disorder, unspecified; M81.0 Age-related osteoporosis without current pathological fracture; R00.1 Bradycardia, unspecified; E78.5 Hyperlipidemia, unspecified; D63.1 Anemia in chronic kidney disease; E83.39 Other disorders of phosphorus metabolism; Z79.82 Long term (current) use of aspirin
CPT/HCPCS: A9562; G0365; J0171; J0881; J1644; J2250; J2930; J3010; J7050